=== PATIENT | female | born 2000 | race Caucasian/White ===

== ENCOUNTER 2021-01-04 21:39 | Outpatient (CLI) | payer OTHER ==
[2021-01-22] MEDS ORDERED: ROXICODONE TAB 55 MG PO (10:18)
[2021-01-22] MEDS ORDERED: NAPROXEN250 MG PO (10:18)
[2021-01-22] MEDS ORDERED: TYLENOL 500 MG500 MG PO (10:18)
[2021-01-22] MEDS ORDERED: STOOL SOFTENER100 MG PO (10:18)
== END 2021-01-04 23:17 | disposition home or self-care (01) ==
LOC: GENOP 21:39
DX: O42.913 Preterm premature rupture of membranes, unspecified as to length of time between rupture and onset of labor, third trimester (principal); O26.893 Other specified pregnancy related conditions, third trimester; R10.30 Lower abdominal pain, unspecified; R10.2 Pelvic and perineal pain; Z3A.36 36 weeks gestation of pregnancy
CPT/HCPCS: G0463

== ENCOUNTER → 2021-01-21 | Outpatient (CLI) | payer OTHER ==
[~2021-01-21] MED LIST: NAPROXEN250 MG PO; ROXICODONE TAB 55 MG PO; STOOL SOFTENER100 MG PO; TYLENOL 500 MG500 MG PO
[2021-01-21 11:33] LABS: HEMOGLOBIN 10.8 gm/dl (12.3-15.3); RED BLOOD COUNT 3.82 M/UL (4.00-5.10); WHITE BLOOD COUNT 9.7 K/UL (4.5-11.0)
== END ==
LOC: GENOP 10:54
PROVIDERS: Obstetrics & Gynecology
DX: Z01.812 Encounter for preprocedural laboratory examination (principal); O34.219 Maternal care for unspecified type scar from previous cesarean delivery; Z20.822 Contact with and (suspected) exposure to COVID-19
CPT/HCPCS: 36415; 81001; 85025; U0002

== ENCOUNTER 2021-01-22 05:21 | Inpatient (IN) | payer OTHER ==
[~2021-01-22] VITALS: Ht 157.5 cm; Wt 74.4 kg
[2021-01-22] MEDS ORDERED: NAPROXEN250 MG PO (10:18)
[2021-01-22] MEDS ORDERED: TYLENOL 500 MG500 MG PO (10:18)
[2021-01-22] MEDS ORDERED: ROXICODONE TAB 55 MG PO (10:18)
[2021-01-22] MEDS ORDERED: STOOL SOFTENER100 MG PO (10:18)
== END 2021-01-24 14:50 | disposition home or self-care (01) | DRG 786 ==
LOC: OB 05:21
PROVIDERS: ADMIT Obstetrics & Gynecology
PROC: 3E02340 Introduction of Influenza Vaccine into Muscle, Percutaneous Approach (ICD-10-PCS; 2021-01-22)
PROC: 3E0234Z Introduction of Serum, Toxoid and Vaccine into Muscle, Percutaneous Approach (ICD-10-PCS; 2021-01-22)
PROC: 10D00Z1 Extraction of Products of Conception, Low, Open Approach (ICD-10-PCS; principal; 2021-01-22 07:30)
DX: O26.62 Liver and biliary tract disorders in childbirth (principal); K83.1 Obstruction of bile duct; Z3A.38 38 weeks gestation of pregnancy; Z37.0 Single live birth; Z20.822 Contact with and (suspected) exposure to COVID-19; O34.211 Maternal care for low transverse scar from previous cesarean delivery; N85.8 Other specified noninflammatory disorders of uterus; O99.333 Smoking (tobacco) complicating pregnancy, third trimester; O99.344 Other mental disorders complicating childbirth; F41.9 Anxiety disorder, unspecified; O99.02 Anemia complicating childbirth; D64.9 Anemia, unspecified; Z23 Encounter for immunization
CPT/HCPCS: 36415; 36430; 81001; 82800; 85014; 85018; 85025; 90686; C9113; G0008; J0690; J1170; J1200; J2274; J2405; J2590; J3010; J7120; U0002

== ENCOUNTER 2022-01-08 19:12 | Emergency (ER) | payer OTHER | END 2022-01-08 22:50 | disposition home or self-care (01) | LOC: ER1 19:12 | DX: O99.891 Other specified diseases and conditions complicating pregnancy (principal); R19.7 Diarrhea, unspecified; Z3A.30 30 weeks gestation of pregnancy; Z20.822 Contact with and (suspected) exposure to COVID-19 | CPT/HCPCS: 0240U; 99284 ==

== ENCOUNTER 2022-02-10 05:49 | Outpatient (CLI) | payer OTHER | END 2022-02-10 08:17 | disposition home or self-care (01) | LOC: GENOP 05:49 | PROVIDERS: Obstetrics & Gynecology | DX: O47.03 False labor before 37 completed weeks of gestation, third trimester (principal); Z88.5 Allergy status to narcotic agent; Z88.1 Allergy status to other antibiotic agents; Z3A.34 34 weeks gestation of pregnancy | CPT/HCPCS: 80307; 81001 ==

== ENCOUNTER 2022-02-28 22:14 | Outpatient (CLI) | payer OTHER | END 2022-03-01 00:18 | disposition home or self-care (01) | LOC: GENOP 22:14 | DX: O24.419 Gestational diabetes mellitus in pregnancy, unspecified control (principal); Z87.891 Personal history of nicotine dependence; Z88.5 Allergy status to narcotic agent; Z88.1 Allergy status to other antibiotic agents; Z3A.37 37 weeks gestation of pregnancy | CPT/HCPCS: 81001; 82962; G0463 ==

== ENCOUNTER 2022-03-15 07:47 | Inpatient (IN) | payer OTHER ==
[~2022-03-15] VITALS: Ht 157.5 cm; Wt 71.7 kg
[2022-03-15 09:06] LABS: RED BLOOD COUNT 3.83 M/UL (4.00-5.10); WHITE BLOOD COUNT 10.3 K/UL (4.5-11.0)
[2022-03-15] MEDS ORDERED: GLUCOPHAGE XR500 M1 PO (09:27)
[2022-03-15] MEDS ORDERED: NAPROXEN250 MG PO (11:54)
[2022-03-15] MEDS ORDERED: COLACE 100MG C100 MG PO (11:54)
[2022-03-15] MEDS ORDERED: PERCOCET 5-3251 EACH PO (11:54)
[2022-03-16 04:41] LABS: HEMOGLOBIN 8.8 gm/dl (12.3-15.3)
== END 2022-03-16 17:53 | disposition home or self-care (01) | DRG 788 ==
LOC: OB 07:47
PROVIDERS: ADMIT Obstetrics & Gynecology
PROC: 4A1HXCZ Monitoring of Products of Conception, Cardiac Rate, External Approach (ICD-10-PCS; 2022-03-15)
PROC: 3E0234Z Introduction of Serum, Toxoid and Vaccine into Muscle, Percutaneous Approach (ICD-10-PCS; 2022-03-15)
PROC: 10D00Z1 Extraction of Products of Conception, Low, Open Approach (ICD-10-PCS; principal; 2022-03-15 09:00)
DX: O34.211 Maternal care for low transverse scar from previous cesarean delivery (principal); Z3A.39 39 weeks gestation of pregnancy; Z37.0 Single live birth; O24.425 Gestational diabetes mellitus in childbirth, controlled by oral hypoglycemic drugs; Z20.822 Contact with and (suspected) exposure to COVID-19; Z98.890 Other specified postprocedural states; Z83.3 Family history of diabetes mellitus; Z82.5 Family history of asthma and other chronic lower respiratory diseases; Z83.2 Family history of diseases of the blood and blood-forming organs and certain disorders involving the immune mechanism; Z81.8 Family history of other mental and behavioral disorders; Z86.69 Personal history of other diseases of the nervous system and sense organs; Z23 Encounter for immunization
CPT/HCPCS: 36415; 36600; 80307; 81001; 82800; 82962; 85014; 85018; 85025; 90715; C9113; J0690; J1885; J2250; J2370; J2405; J2590; J3010; J7030; J7120; U0002